=== PATIENT | female | born 1965 | race Caucasian/White ===

== ENCOUNTER 2018-06-06 01:40 | Emergency (ER) | payer OTHER ==
[2018-06-06 01:56] VITALS: BP 142/84; PULSE 75; TEMP 97.6; BMI 39.1
--- NOTE | 2018-06-06 02:10 | PDOC ---
History of Present Illness - General Chief Complaint: Pain, Acute Stated Complaint: ABD PAIN Time Seen by Provider: 06/06/18 02:10 - History of Present Illness Initial Comments: 06/06/18 02:11 52 year old woman with a history of chronic back pain w/ L4, L5 disc bulging, bipolar, RA not currently on meds, hypercholesterolemia, presents with 2 days of gradual lower back paraspinal pain that is worse with twisting or movement after spending the day cleaning her house yesterday. She notes that her back pain is not similar to her previous sciatic pain and does not travel into her legs. She denies dysuria, hematuria, urinary retention or incontinence. She takes Robaxin and Neurontin for her back pain and she is managed by pain management. She denies chest pain, shortness of breath, abdominal pain, diarrhea , nausea or vomiting but admits to chronic constipation. Past History - Past Medical History Allergies/Adverse Reactions: Allergies Allergy/AdvReac Type Severity Reaction Status Date / Time Fish Containing Products Allergy Verified 06/06/18 01:45 SEAFOD Allergy Unknown Swelling Uncoded 06/06/18 01:45 Home Medications: Ambulatory Orders Mirtazapine [Remeron -] 45 mg PO DAILY 08/17/13 Simvastatin [Zocor -] 20 mg PO HS 08/17/13 Alprazolam 2 mg PO TID 02/10/18 Quetiapine Fumarate [Seroquel -] 300 mg PO HS 02/10/18 Diclofenac Sodium [Voltaren] 2 gm TP TID PRN #3 tube 02/17/18 Ergocalciferol [Vitamin D2] 50,000 unit PO Q7D #4 capsule 02/17/18 Gabapentin 300 mg PO BID #60 capsule 05/18/18 Gabapentin 300 mg PO HS #30 capsule 05/18/18 Methocarbamol [Robaxin -] 750 mg PO BID PRN #60 tablet 05/18/18 Asthma: Yes Cancer: No Cardiac Disorders: No CVA: No Diabetes: No Disorders: No HTN: No Hypercholesterolemia: Yes (on meds) Liver Disease: No Psychiatric Problems: Yes (BIPOLAR) Seizures: No Thyroid Disease: No - Surgical History Abdominal Surgery: Yes (HERNIA REPAIR) - Suicide/Smoking/Psychosocial Hx Smoking History: Never smoked Have you smoked in the past 12 months: No Number of Cigarettes Smoked Daily: 6 If you are a former smoker, when did you quit?: 05/2013 Information on smoking cessation initiated: No 'Breaking Loose' booklet given: 05/21/14 Hx Alcohol Use: No Drug/Substance Use Hx: No Substance Use Type: None Hx Substance Use Treatment: No *Physical Exam - Vital Signs Last Vital Signs Temp Pulse Resp BP Pulse Ox 97.6 F 75 18 142/84 98 06/06/18 01:45 06/06/18 01:45 06/06/18 01:45 06/06/18 01:45 06/06/18 01:45 - Physical Exam Comments: 06/06/18 02:52 mild lumber paraspinal tenderness to palpation no spinal tenderness to palpation, no step offs CTAB, RRR Moderate Sedation - Procedure Monitoring Vital Signs: Procedure Monitoring Vital Signs Temperature 97.6 F 06/06/18 01:45 Pulse Rate 75 06/06/18 01:45 Respiratory Rate 18 06/06/18 01:45 Blood Pressure 142/84 06/06/18 01:45 O2 Sat by Pulse Oximetry (%) 98 06/06/18 01:45 Medical Decision Making - Medical Decision Making 06/06/18 02:49 52 year old woman with a history of chronic back pain w/ L4, L5 disc bulging, bipolar, RA not currently on meds, hypercholesterolemia, presents with 2 days of gradual lower back paraspinal pain that is worse with twisting or movement after spending the day cleaning her house yesterday. She notes that her back pain is not similar to her previous sciatic pain and does not travel into her legs. She denies dysuria, hematuria, urinary retention or incontinence. She takes Robaxin and Neurontin for her back pain and she is managed by pain management. ED Course: consider musculoskeletal pain vs sciatica r/o uti vs pyelo will dose pain medications and order ua reassess for clinical improvement 06/06/18 04:18 ua without uti 06/06/18 04:49 Patient reassessed, shows improvement of symptoms 06/06/18 04:51 *DC/Admit/Observation/Transfer Diagnosis at time of Disposition: Back pain, Musculoskeletal pain - Discharge Dispostion Disposition: HOME Condition at time of disposition: Stable Decision to Admit order: No - Referrals Referrals: Mitra Moura MD [Primary Care Provider] - - Patient Instructions Printed Discharge Instructions: DI for Low Back Pain Additional Instructions: You were seen in the ED for complaints of low back pain. In the ED you were evaluated with urine lab test and physical exam. Your results were unremarkable. There does not appear to be an acute need for immediate hospitalization. You are advised to follow up with your Primary Care Physician within 1 week. You were given a prescription for pain medications, please take as directed. Return to the ED immediately if you experience worsening lower back pain, numbness in the groin, urine incontinence, urine retention, blood in the urine or stool or fever. - Post Discharge Activity
--- NOTE | 2018-06-06 02:20 | PDOC ---
Attending Attestation - Resident Resident Name: Caroline Taylor - ED Attending Attestation I have performed the following: I have examined & evaluated the patient, The case was reviewed & discussed with the resident, I agree w/resident's findings & plan - HPI HPI: 06/06/18 04:52 Pt was cleaning her home and strained her back. States her robaxin didn;t help - Physicial Exam PE: 06/06/18 04:53 Agree with resident exam - Medical Decision Making 06/06/18 04:53 Home with flexeril
[2018-06-06 03:53] LABS: URINE APPEARANCE CLEAR; URINE BILIRUBIN NEGATIVE (<2.0 mg/dL); URINE COLOR LTYELLOW; URINE GLUCOSE (UA) NEGATIVE (NEGATIVE); URINE KETONE NEGATIVE (NEGATIVE); URINE LEUK ESTERASE TRACE (NEGATIVE); URINE NITRITE NEGATIVE (NEGATIVE); URINE PROTEIN NEGATIVE (NEGATIVE)
[2018-06-06 04:02] LABS: EPI CELLS RARE /HPF (FEW); URINE BACTERIA RARE /hpf (NONE SEEN)
== END 2018-06-06 04:55 | disposition home or self-care (01) ==
LOC: JER 01:40
DX: M54.5 Low back pain (principal); G89.29 Other chronic pain; F31.9 Bipolar disorder, unspecified; M06.9 Rheumatoid arthritis, unspecified; Z87.891 Personal history of nicotine dependence
CPT/HCPCS: 81003; 81015; 87086; 99281-25

== ENCOUNTER 2018-06-08 22:30 | Emergency (ER) | payer OTHER ==
[2018-06-08 22:41] VITALS: BP 102/54; PULSE 72; TEMP 98.1; BMI 27.9
--- NOTE | 2018-06-09 00:39 | PDOC ---
History of Present Illness - General Chief Complaint: Chest Pain Stated Complaint: CHEST PAIN Time Seen by Provider: 06/09/18 00:08 History Source: Patient Exam Limitations: No Limitations - History of Present Illness Presenting Symptoms: Other (palpitations) Timing/Duration: reports: resolved prior to arrival Severity/Quality: reports: mild (left arm has transient numbness) Prior Chest Pain/Cardiac Workup: reports: Echocardiography (pt had a stress test and ECHO done by Dr Dumont this year), Stress Test Nitro Today/Relief: Yes: no nitro taken today Aspirin Received prior to arrival (Core Measure): Yes: 81 mg x 2, provided by ED Past History - Past Medical History Allergies/Adverse Reactions: Allergies Allergy/AdvReac Type Severity Reaction Status Date / Time Fish Containing Products Allergy Verified 06/08/18 22:41 SEAFOD Allergy Unknown Swelling Uncoded 06/08/18 22:41 Home Medications: Ambulatory Orders Mirtazapine [Remeron -] 45 mg PO DAILY 08/17/13 Simvastatin [Zocor -] 20 mg PO HS 08/17/13 Alprazolam 2 mg PO TID 02/10/18 Quetiapine Fumarate [Seroquel -] 300 mg PO HS 02/10/18 Diclofenac Sodium [Voltaren] 2 gm TP TID PRN #3 tube 02/17/18 Ergocalciferol [Vitamin D2] 50,000 unit PO Q7D #4 capsule 02/17/18 Gabapentin 300 mg PO BID #60 capsule 05/18/18 Gabapentin 300 mg PO HS #30 capsule 05/18/18 Methocarbamol [Robaxin -] 750 mg PO BID PRN #60 tablet 05/18/18 Nitrofurantoin Monohyd/M-Cryst [Macrobid -] 100 mg PO BID #10 capsule 06/06/18 Oxycodone HCl/Acetaminophen [Percocet 5-325 mg Tablet] 1 tab PO Q6H #16 tablet MDD 4 06/06/18 Oxycodone HCl/Acetaminophen [Percocet 5/325 -] 1 tab PO Q6H #14 tablet MDD 4 07/20 Asthma: Yes Cancer: No Cardiac Disorders: No CVA: No COPD: No Diabetes: No Disorders: No HTN: No Hypercholesterolemia: Yes (on meds) Liver Disease: No Psychiatric Problems: Yes (BIPOLAR) Seizures: No Thyroid Disease: No - Surgical History Abdominal Surgery: Yes (HERNIA REPAIR) - Immunization History Td Vaccination: Yes TDAP Vaccination: Yes Immunization Up to Date: Yes - Suicide/Smoking/Psychosocial Hx Smoking History: Never smoked Have you smoked in the past 12 months: No Number of Cigarettes Smoked Daily: 6 If you are a former smoker, when did you quit?: 05/2013 Information on smoking cessation initiated: No 'Breaking Loose' booklet given: 05/21/14 Hx Alcohol Use: No Drug/Substance Use Hx: No Substance Use Type: None Hx Substance Use Treatment: No Cardiac Specific PMH - Complaint Specific PMHX Pacemaker: No Review of Systems - Review of Systems Able to Perform ROS?: Yes Is the patient limited Kyrgyz proficient: No Constitutional: No: Symptoms Reported, See HPI, Chills, Diaphoresis, Fever, Loss of Appetite, Malaise, Night Sweats, Weakness, Weight Stable, Unintentional Wgt. Loss, Unexplained wgt Loss, Other HEENTM: No: Symptoms Reported, See HPI, Eye Pain, Blurred Vision, Tearing, Recent change in vision, Double Vision, Cataracts, Ear Pain, Ocular Prothesis, Ear Discharge, Nose Pain, Nose Congestion, Tinnitus, Nose Bleeding, Hearing Loss , Throat Pain, Throat Swelling, Mouth Pain, Dental Problems, Difficulty Swallowing, Mouth Swelling, Other Respiratory: No: Symptoms reported, See HPI, Cough, Orthopnea, Shortness of Breath, SOB with Exertion, SOB at Rest, Stridor, Wheezing, Productive cough, Hemoptysis, Other Cardiac (ROS): Yes: Palpitations ABD/GI: No: Symptoms Reported, See HPI, Abdominal Distended, Abd. Pain w/ defecation, Blood Streaked Bowels, Constipated, Diarrhea, Difficulty Swallowing , Nausea, Poor Appetite, Poor Fluid Intake, Rectal Bleeding, Vomiting, Indigestion, Abdominal cramping, Tarry Stools, Other : No: Symptoms Reported, See HPI, Burning, Dysuria, Discharge, Frequency, Flank Pain, Hematuria, Incontinence, Pain, Urgency, Testicular Mass, Testicular Swelling, Lesions, Testicular Pain, Other Musculoskeletal: No: Symptoms Reported, See HPI, Back Pain, Gout, Joint Pain, Joint Swelling, Muscle Pain, Muscle Weakness, Neck Pain, Joint Stiffness, Other Integumentary: No: Symptoms Reported, See HPI, Bruising, Change in Color, Change in Hair/Nails, Dryness, Erythema, Flushing, Lesions, Lumps, Pallor, Pruritus, Rash, Sweating, Other Neurological: No: Symptoms reported, See HPI, Headache, Numbness, Paresthesia, Pre-Existing Deficit, Seizure, Tingling, Tremors, Weakness, Unsteady Gait, Ataxia, Dizziness, Other Hematologic/Lymphatic: No: Symptoms Reported, See HPI, Anemia, Blood Clots, Easy Bleeding, Easy Bruising, Bleeding Diathesis, Lymph Node Abnormalities, Swollen Glands, Other *Physical Exam - Vital Signs Last Vital Signs Temp Pulse Resp BP Pulse Ox 98.1 F 72 16 102/54 L 98 06/08/18 22:30 06/08/18 22:30 06/08/18 22:30 06/08/18 22:30 06/08/18 22:30 - Physical Exam General Appearance: Yes: Nourished HEENT: positive: Normal Voice Neck: positive: Supple Respiratory/Chest: positive: Lungs Clear Cardiovascular: positive: Regular Rhythm, Regular Rate Gastrointestinal/Abdominal: positive: Soft Musculoskeletal: positive: Normal Inspection Extremity: positive: Normal Inspection, Normal Range of Motion Integumentary: positive: Normal Color, Warm Neurologic: positive: Fully Oriented, Alert, Motor Strength 5/5 Moderate Sedation - Procedure Monitoring Vital Signs: Procedure Monitoring Vital Signs Temperature 98.1 F 06/08/18 22:30 Pulse Rate 72 06/08/18 22:30 Respiratory Rate 16 06/08/18 22:30 Blood Pressure 102/54 L 06/08/18 22:30 O2 Sat by Pulse Oximetry (%) 98 06/08/18 22:30 ED Treatment Course - LABORATORY CBC & Chemistry Diagram: 06/09/18 01:00 06/09/18 01:00 - ADDITIONAL ORDERS Additional order review: Laboratory Results 06/09/18 01:00 Sodium 142 Potassium 4.0 Chloride 108 H Carbon Dioxide 22 Anion Gap 11 BUN 21 H Creatinine 1.1 Creat Clearance w eGFR 51.96 Random Glucose 212 H Calcium 8.4 L Total Bilirubin 0.2 AST 23 ALT 39 Alkaline Phosphatase 89 Creatine Kinase 151 Troponin I < 0.02 Total Protein 7.0 Albumin 3.6 06/09/18 01:00 RBC 4.28 MCV 90.5 MCHC 34.7 RDW 14.1 MPV 8.1 D Neutrophils % 75.9 Lymphocytes % 19.1 Monocytes % 3.1 L Eosinophils % 0.9 D Basophils % 1.0 - Medications Given in the ED: ED Medications Discontinued Medications Generic Name Dose Route Start Last Admin Trade Name Alonzo PRN Reason Stop Dose Admin Aspirin 162 mg 06/09/18 00:41 06/09/18 01:05 Asa - PO 06/09/18 00:42 162 mg ONCE ONE Administration *DC/Admit/Observation/Transfer Diagnosis at time of Disposition: Palpitations - Discharge Dispostion Disposition: HOME Condition at time of disposition: Stable - Referrals Referrals: Mitra Moura MD [Primary Care Provider] - - Patient Instructions Printed Discharge Instructions: DI for Palpitations Additional Instructions: please follow up with your heart doctor return for any worsening symptoms - Post Discharge Activity
[2018-06-09] MEDS ORDERED: ASPIRIN 81 MG CHEWABLE TABLETS PO ONE (00:41)
[2018-06-09] MEDS ORDERED: ASPIRIN 81 MG CHEWABLE TABLETS ONE (01:00)
[2018-06-09 01:14] LABS: EOS % 0.9 % (0-4.5); HEMATOCRIT 38.8 % (32.4-45.2); HEMOGLOBIN 13.4 GM/dL (10.7-15.3); LYMPH % 19.1 % (8-40); MCH 31.4 pg (25.7-33.7); MCHC 34.7 g/dl (32.0-36.0); MEAN CELL VOLUME 90.5 fl (80-96); MEAN PLT VOLUME 8.1 fl (7.5-11.1); MONO % 3.1 % (3.8-10.2); NEUT % 75.9 % (42.8-82.8); PLATELET COUNT 244 K/MM3 (134-434); RBC 4.28 M/mm3 (3.60-5.2); RDW 14.1 % (11.6-15.6); WHITE BLOOD COUNT 9.4 K/mm3 (4.0-10.0)
[2018-06-09 01:40] LABS: ALBUMIN 3.6 g/dl (3.4-5.0); ALK PHOS 89 U/L (45-117); ANION GAP 11 MMOL/L (8-16); BILIRUBIN,TOTAL 0.2 mg/dL (0.2-1); BLOOD UREA NITROGEN 21 mg/dL (7-18); CALCIUM 8.4 mg/dL (8.5-10.1); CHLORIDE 108 mmol/L (98-107); CO2 22 mmol/L (21-32); CREATININE 1.1 mg/dL (0.55-1.3); GLUCOSE,RANDOM 212 mg/dL (74-106); SGOT/AST 23 U/L (15-37); SGPT/ALT 39 U/L (13-61); SODIUM 142 mmol/L (136-145)
--- NOTE | 2018-06-10 16:44 | EKG ---
Test Reason : Blood Pressure : / mmHG Vent. Rate : 069 BPM Atrial Rate : 069 BPM P-R Int : 172 ms QRS Dur : 100 ms QT Int : 410 ms P-R-T Axes : 069 044 034 degrees QTc Int : 439 ms NORMAL SINUS RHYTHM POSSIBLE LEFT ATRIAL ENLARGEMENT BORDERLINE ECG NO PREVIOUS ECGS AVAILABLE Confirmed by MARIALUISA HIGUERA, JERRY ([id number]) on 06/10/2018 4:44:02 PM Referred By: Confirmed By:JERRY ELAM MD
== END 2018-06-09 02:16 | disposition home or self-care (01) ==
LOC: JER 22:30
DX: R00.2 Palpitations (principal)
CPT/HCPCS: 36415; 80053; 82550; 82553; 84484; 85025; 93005; 93010; 99282-25

== ENCOUNTER 2019-01-03 09:02 | Emergency (ER) | payer OTHER ==
[2019-01-03 09:10] VITALS: BP 110/70; PULSE 69; TEMP 97.7; BMI 27.6
[2019-01-03] MEDS ORDERED: METHOCARBAMOL 500 MG TABLET PO ONE (09:52)
[2019-01-03] MEDS ORDERED: KETOROLAC TROMETHAMINE 15 MG/ML VIAL IM ONE (09:52)
[2019-01-03] MEDS ORDERED: KETOROLAC TROMETHAMINE 15 MG/ML VIAL ONE (10:09)
[2019-01-03] MEDS ORDERED: METHOCARBAMOL 500 MG TABLET ONE (10:10)
--- NOTE | 2019-01-03 10:51 | PDOC ---
History of Present Illness - General Chief Complaint: Pain Stated Complaint: LT FOOT PAIN Time Seen by Provider: 01/03/19 09:32 History Source: Patient Exam Limitations: No Limitations - History of Present Illness Initial Comments: 01/03/19 10:46 53 yo F w/ a h/o bipolar disorder, asthma, high cholesterol comes in with daughter c/o 2 weeks of L foot pain. She was wearing heels 2 weeks ago, felt a snap/pop to her L foot and has been in pain since. Denies trauma/injury, was not wearing new shoes, although there was a strap pressing on the dorsum of her foot. NO other complaints today, no numbness.tingling, no weakness, no ankle pain, no knee pain, no fever/chills, no NVD. Pt took naprosyn which has not helped with her pain 01/03/19 10:47 01/03/19 10:53 Past History - Past Medical History Allergies/Adverse Reactions: Allergies Allergy/AdvReac Type Severity Reaction Status Date / Time Fish Containing Products Allergy Verified 01/03/19 09:06 SEAFOD Allergy Unknown Swelling Uncoded 01/03/19 09:06 Home Medications: Ambulatory Orders Mirtazapine [Remeron -] 45 mg PO DAILY 08/17/13 Simvastatin [Zocor -] 20 mg PO HS 08/17/13 Alprazolam 2 mg PO TID 02/10/18 Quetiapine Fumarate [Seroquel -] 300 mg PO BID 02/10/18 Methocarbamol [Robaxin -] 750 mg PO BID PRN #60 tablet 05/18/18 Nitrofurantoin Monohyd/M-Cryst [Macrobid -] 100 mg PO BID #10 capsule 06/06/18 Docusate Sodium [Colace] 100 mg PO DAILY 06/09/18 Sennosides [Senna] 8.6 mg PO DAILY 06/09/18 Diclofenac Sodium [Voltaren] 2 gm TP TID PRN #3 tube 08/09/18 Ergocalciferol [Vitamin D2] 50,000 unit PO Q7D #4 capsule 08/09/18 Gabapentin 300 mg PO BID PRN #60 capsule 08/09/18 Lidocaine [Ztlido] 1 each TP DAILY #30 adh..patch 08/09/18 Acetaminophen [Tylenol -] 1,000 mg PO Q8H 4 Days #20 tablet 01/03/19 Cephalexin [Keflex] 500 mg PO TID 30 Days #30 capsule 01/03/19 Methocarbamol [Robaxin-750] 750 mg PO TID 3 Days #15 tablet 01/03/19 Asthma: Yes Cancer: No Cardiac Disorders: No CVA: No COPD: No Diabetes: No Disorders: No HTN: No Hypercholesterolemia: Yes (on meds) Liver Disease: No Psychiatric Problems: Yes (BIPOLAR) Seizures: No Thyroid Disease: No - Surgical History Abdominal Surgery: Yes (HERNIA REPAIR) - Immunization History Td Vaccination: Yes TDAP Vaccination: Yes Immunization Up to Date: Yes - Suicide/Smoking/Psychosocial Hx Smoking History: Current every day smoker Have you smoked in the past 12 months: No Number of Cigarettes Smoked Daily: 10 If you are a former smoker, when did you quit?: 05/2013 Information on smoking cessation initiated: No 'Breaking Loose' booklet given: 05/21/14 Hx Alcohol Use: No Drug/Substance Use Hx: No Substance Use Type: None Hx Substance Use Treatment: No Review of Systems - Review of Systems Able to Perform ROS?: Yes Constitutional: No: Chills, Fever, Malaise, Night Sweats HEENTM: No: Eye Pain, Recent change in vision, Throat Pain Respiratory: No: Cough, Shortness of Breath Cardiac (ROS): No: Chest Pain, Palpitations, Chest Tightness ABD/GI: No: Diarrhea, Nausea, Vomiting, Abdominal cramping : No: Dysuria, Hematuria Musculoskeletal: No: Back Pain Integumentary: No: Rash Neurological: No: Headache, Numbness, Dizziness Psychiatric: No: Change in Appetite Endocrine: No: Unexplained Weight Loss *Physical Exam - Vital Signs Last Vital Signs Temp Pulse Resp BP Pulse Ox 97.7 F 69 18 110/70 100 01/03/19 09:06 01/03/19 09:06 01/03/19 09:06 01/03/19 09:06 01/03/19 09:06 - Physical Exam General Appearance: Yes: Nourished. No: Apparent Distress HEENT: positive: Normal Voice. negative: Pale Conjunctivae, Scleral Icterus (R) , Scleral Icterus (L) Neck: positive: Supple. negative: Decreased range of motion Respiratory/Chest: negative: Respiratory Distress, Accessory Muscle Use Cardiovascular: positive: Regular Rate Musculoskeletal: positive: Normal Inspection. negative: Decreased Range of Motion Extremity: positive: Normal Capillary Refill, Normal Range of Motion, Other (L foot with mild erythema overlying the dorsum aspect of the foot). negative: Tender, Pedal Edema Integumentary: positive: Normal Color, Dry. negative: Jaundice, Rash Neurologic: positive: Fully Oriented, Alert, Normal Mood/Affect ED Treatment Course - RADIOLOGY Radiology Studies Ordered: Category Date Time Status FOOT-LEFT [RAD] Stat Radiology 01/03/19 09:51 Completed - Medications Given in the ED: ED Medications Discontinued Medications Generic Name Dose Route Start Last Admin Trade Name Freq PRN Reason Stop Dose Admin Ketorolac Tromethamine 15 mg 01/03/19 09:52 01/03/19 10:23 Toradol Injection - IM 01/03/19 09:53 15 mg ONCE ONE Administration Methocarbamol 1,000 mg 01/03/19 09:52 01/03/19 10:23 Robaxin - PO 01/03/19 09:53 1,000 mg ONCE ONE Administration *DC/Admit/Observation/Transfer Diagnosis at time of Disposition: Foot pain, left, Tendonitis of ankle or foot, Cellulitis of foot, left Osteoarthritis Qualifiers: Osteoarthritis location: foot Osteoarthritis type: unspecified Laterality: left Qualified Code(s): M19.072 - Primary osteoarthritis, left ankle and foot - Discharge Dispostion Disposition: HOME Condition at time of disposition: Stable - Prescriptions Prescriptions: Acetaminophen [Tylenol -] 1,000 mg PO Q8H 4 Days #20 tablet Methocarbamol [Robaxin-750] 750 mg PO TID 3 Days #15 tablet - Referrals Referrals: Danielle Gu DO [Primary Care Provider] - Arya Campos DO [Staff Physician] - - Patient Instructions Additional Instructions: Please make an appointment with the orthopedist and with your PCP for this week. Return for worsening/concerning symptoms. - Post Discharge Activity
[2019-01-03] MEDS ORDERED: ACETAMINOPHEN 325 MG TABLET (FP) PO ONE (10:59)
[2019-01-03] MEDS ORDERED: CEPHALEXIN MONOHYDRATE 500 MG CAPSULE (UD) PO ONE (10:59)
[2019-01-03] MEDS ORDERED: ACETAMINOPHEN 325 MG TABLET (FP) ONE (11:00)
[2019-01-03] MEDS ORDERED: CEPHALEXIN MONOHYDRATE 500 MG CAPSULE (UD) ONE (11:00)
== END 2019-01-03 12:26 | disposition home or self-care (01) ==
LOC: JERFT 09:02
PROC: 3E0233Z Introduction of Anti-inflammatory into Muscle, Percutaneous Approach (ICD-10-PCS; principal; 2019-01-03)
DX: L03.116 Cellulitis of left lower limb (principal); M19.072 Primary osteoarthritis, left ankle and foot; M77.52 Other enthesopathy of left foot and ankle
CPT/HCPCS: 73630-TC-LT; 96372; 99281-25

== ENCOUNTER 2021-04-16 11:56 | Emergency (ER) | payer OTHER ==
[2021-04-16 12:59] VITALS: BP 138/85; PULSE 79; TEMP 97.2; BMI 29.7
[2021-04-16] MEDS ORDERED: METHOCARBAMOL 500 MG TABLET PO ONE (14:46)
[2021-04-16] MEDS ORDERED: KETOROLAC TROMETHAMINE 30 MG/1 ML VIAL IM ONE (14:46)
[2021-04-16] MEDS ORDERED: KETOROLAC TROMETHAMINE 30 MG/1 ML VIAL ONE (14:49)
[2021-04-16] MEDS ORDERED: METHOCARBAMOL 500 MG TABLET ONE (14:49)
== END 2021-04-16 14:55 | disposition home or self-care (01) ==
LOC: JERFT 11:56
PROC: 3E023GC Introduction of Other Therapeutic Substance into Muscle, Percutaneous Approach (ICD-10-PCS; principal; 2021-04-16)
DX: S76.211A Strain of adductor muscle, fascia and tendon of right thigh, initial encounter (principal); X50.0XXA Overexertion from strenuous movement or load, initial encounter
CPT/HCPCS: 76856-TC; 93971-TC; 99284-25

== ENCOUNTER 2021-07-05 04:18 | Day surgery (SDC) | payer OTHER ==
[2021-07-04 10:56] VITALS: BMI 29.7
[2021-07-05] MEDS ORDERED: LIDOCAINE HCL/PF 1% SDV 5ML VIAL ONE (07:24)
[2021-07-05] MEDS ORDERED: TRIAMCINOLONE ACET 40MG/1ML VIAL ONE (07:24)
[2021-07-05] MEDS ORDERED: LIDOCAINE HCL 1% PRESERVATIVE FREE - 30ML VIAL IJ ONE (12:58)
[2021-07-05] MEDS ORDERED: TRIAMCINOLONE ACET 40MG/1ML VIAL IJ ONE (12:59)
[2021-07-05] MEDS ORDERED: BUPIVACAINE HCL/PF 0.25% (2.5MG/ML) 10 ML VIAL IJ ONE (13:00)
[2021-07-05 15:02] VITALS: BP 120/70; PULSE 70; TEMP 98
== END 2021-07-05 13:30 | disposition home or self-care (01) ==
LOC: JASU-SURG 04:18
PROVIDERS: ATTEND Pain Medicine Pain Medicine
PROC: 3E0U3BZ Introduction of Anesthetic Agent into Joints, Percutaneous Approach (ICD-10-PCS; 2021-07-05)
PROC: BQ40ZZZ Ultrasonography of Right Hip (ICD-10-PCS; 2021-07-05)
PROC: 3E0U3NZ Introduction of Analgesics, Hypnotics, Sedatives into Joints, Percutaneous Approach (ICD-10-PCS; principal; 2021-07-05 13:30)
DX: M25.551 Pain in right hip (principal)
CPT/HCPCS: 76000-TC-FY; J1100

== ENCOUNTER 2021-07-30 04:32 | Day surgery (SDC) | payer OTHER ==
[2021-07-26 16:45] VITALS: BMI 29.8
[2021-07-30] MEDS ORDERED: BUPIVACAINE HCL/PF 0.75% 10 ML VIAL ONE (11:25)
[2021-07-30] MEDS ORDERED: BUPIVACAINE HCL/PF 0.5% (5MG/ML) 10 ML VIAL ONE (11:25)
[2021-07-30] MEDS ORDERED: DEXAMETHASONE SOD PHOSPHATE 10 MG/1 ML VIAL ONE (11:26)
[2021-07-30] MEDS ORDERED: LIDOCAINE HCL/PF 1% SDV 5ML VIAL ONE (11:26)
[2021-07-30] MEDS ORDERED: LIDOCAINE HCL 1% PRESERVATIVE FREE - 30ML VIAL IJ ONE ×2 (11:49→11:50)
[2021-07-30] MEDS ORDERED: DEXAMETHASONE SOD PHOSPHATE 10 MG/1 ML VIAL IVPUSH ONE ×2 (11:51→12:11)
[2021-07-30] MEDS ORDERED: ACETAMINOPHEN 650 MG/20.3 ML ORAL SOLUTION (CUPS) ONE (12:33)
[2021-07-30] MEDS ORDERED: ACETAMINOPHEN 325 MG TABLET (FP) PO ONE (13:30)
[2021-07-30 13:47] VITALS: TEMP 98
[2021-07-30 13:51] VITALS: BP 126/88; PULSE 69
== END 2021-07-30 12:50 | disposition home or self-care (01) ==
LOC: JASU-SURG 04:32
PROVIDERS: ATTEND Pain Medicine Pain Medicine
PROC: 3E0R33Z Introduction of Anti-inflammatory into Spinal Canal, Percutaneous Approach (ICD-10-PCS; 2021-07-30)
PROC: 3E0R3BZ Introduction of Anesthetic Agent into Spinal Canal, Percutaneous Approach (ICD-10-PCS; principal; 2021-07-30 11:00)
DX: M54.16 Radiculopathy, lumbar region (principal)
CPT/HCPCS: 76000-TC-FY; J1100

== ENCOUNTER 2021-08-17 11:09 | Emergency (ER) | payer OTHER ==
[2021-08-17 11:19] VITALS: BP 111/65; PULSE 79; TEMP 97.9; BMI 29.0
== END 2021-08-17 12:28 | disposition home or self-care (01) ==
LOC: JER 11:09
DX: R10.2 Pelvic and perineal pain (principal)
CPT/HCPCS: 99283-25

== ENCOUNTER 2022-05-18 22:17 | Inpatient (IN) | payer OTHER ==
[2022-05-18 22:28] VITALS: BMI 28.3
[2022-05-18] MEDS ORDERED: morphine SULFATE 4 MG/ML VIAL IVPUSH ONE (23:41)
[2022-05-18] MEDS ORDERED: ONDANSETRON 4 MG/2 ML VIAL IVPUSH ONE (23:41)
[2022-05-19] MEDS ORDERED: ONDANSETRON 4 MG/2 ML VIAL ONE (00:29)
[2022-05-19] MEDS ORDERED: morphine SULFATE 4 MG/ML VIAL ONE ×2 (00:30→09:41)
[2022-05-19 01:10] LABS: BASO % 0.8 % (0-2.0); EOS % 1.4 % (0-4.5); HEMATOCRIT 44.9 % (32.4-45.2); LYMPH % 16.6 % (8-40); MCH 29.8 pg (25.7-33.7); MCHC 33.4 g/dl (32.0-36.0); MEAN CELL VOLUME 89.3 fl (80-96); MEAN PLT VOLUME 8.4 fl (7.5-11.1); MONO % 8.6 % (3.8-10.2); NEUT % 72.6 % (42.8-82.8); PH,URINE 6.5 (5.0-8.0); PLATELET COUNT 332 10^3/uL (134-434); RBC 5.03 M/mm3 (3.60-5.2); RDW 14.2 % (11.6-15.6); URINE APPEARANCE CLEAR; URINE BILIRUBIN NEGATIVE (NEGATIVE); URINE COLOR YELLOW; URINE GLUCOSE (UA) NEGATIVE (NEGATIVE); URINE KETONE NEGATIVE (NEGATIVE); URINE LEUK ESTERASE NEGATIVE (NEGATIVE); URINE NITRITE NEGATIVE (NEGATIVE); URINE PROTEIN NEGATIVE (NEGATIVE); URINE UROBILINOGEN 0.2 mg/dL (0.2-1.0); WHITE BLOOD COUNT 18.4 K/mm3 (4.0-10.0)
[2022-05-19 01:19] LABS: INR 0.97 (0.83-1.09); PROTHROMBIN TIME (PATIENT) 11.1 SEC (9.7-13.0)
[2022-05-19 01:22] LABS: ACTIVATED PTT 36.7 SECONDS (25.2-36.5)
[2022-05-19] MEDS ORDERED: PIPERACILLIN/TAZOB 3.375 GM 3.375 GM in DEXTROSE 5%-WATER - 50 ML IVPB ONE (01:40)
[2022-05-19 01:46] LABS: CALCIUM 9.6 mg/dL (8.5-10.1)
[2022-05-19 01:47] LABS: BLOOD UREA NITROGEN 19.7 mg/dL (7-18)
[2022-05-19 01:50] LABS: CREATININE 0.9 mg/dL (0.55-1.3)
[2022-05-19 01:51] LABS: BILIRUBIN,TOTAL 0.7 mg/dL (0.2-1); TOT PROT 7.8 g/dl (6.4-8.2)
[2022-05-19] MEDS ORDERED: PIPERACILLIN/TAZOB 3.375 GM 3.375 GM/50 ML BAG IVPB ONE ×2 (02:03→11:06)
[2022-05-19 03:54] LABS: CALCIUM 8.8 mg/dL (8.5-10.1)
[2022-05-19 03:55] LABS: BLOOD UREA NITROGEN 18.8 mg/dL (7-18)
[2022-05-19 03:58] LABS: CREATININE 0.8 mg/dL (0.55-1.3)
[2022-05-19] MEDS ORDERED: ACETAMINOPHEN 1000 MG/100 ML BAG IVPB ONE (04:00)
[2022-05-19] MEDS ORDERED: ACETAMINOPHEN INJECTION 100 ML IVPB ONE (04:26)
[2022-05-19] MEDS ORDERED: morphine CARPU-JECT 4 MG/1 ML DISP.SYRIN IVPUSH ONE (09:40)
[2022-05-19] MEDS ORDERED: ACETAMINOPHEN 1000 MG/100 ML BAG IVPB PRN (10:52)
[2022-05-19] MEDS ORDERED: ONDANSETRON 4 MG/2 ML VIAL IVPUSH PRN (10:53)
[2022-05-19] MEDS: DEXTROSE 5%-0.45% SALINE 1,000 ML IV SCH (11:00)
[2022-05-19] MEDS ORDERED: PIPERACILLIN/TAZOB 3.375 GM 3.375 GM in DEXTROSE 5%-WATER - 50 ML IVPB SCH (11:00)
[2022-05-19] MEDS: PIPERACILLIN/TAZOB 3.375 GM 3.375 GM in DEXTROSE 5%-WATER - 50 ML IVPB SCH ×2 (11:27→17:56)
[2022-05-19 12:20] LABS: BASO % 0.5 % (0-2.0); EOS % 2.3 % (0-4.5); HEMATOCRIT 39.1 % (32.4-45.2); HEMOGLOBIN 12.9 GM/dL (10.7-15.3); LYMPH % 22.2 % (8-40); MCH 29.2 pg (25.7-33.7); MCHC 32.9 g/dl (32.0-36.0); MEAN CELL VOLUME 88.7 fl (80-96); MEAN PLT VOLUME 8.2 fl (7.5-11.1); MONO % 7.9 % (3.8-10.2); NEUT % 67.1 % (42.8-82.8); PLATELET COUNT 241 10^3/uL (134-434); RDW 14.2 % (11.6-15.6); WHITE BLOOD COUNT 12.5 K/mm3 (4.0-10.0)
[2022-05-19 12:41] LABS: ALBUMIN 3.5 g/dl (3.4-5.0); BLOOD UREA NITROGEN 19.8 mg/dL (7-18)
[2022-05-19 12:44] LABS: CREATININE 0.8 mg/dL (0.55-1.3)
[2022-05-19 12:46] LABS: BILIRUBIN,TOTAL 0.5 mg/dL (0.2-1); TOT PROT 6.7 g/dl (6.4-8.2)
[2022-05-19] MEDS ORDERED: KETOROLAC TROMETHAMINE 30 MG/1 ML VIAL ONE (13:16)
[2022-05-19] MEDS: KETOROLAC TROMETHAMINE 30 MG/1 ML VIAL IVPUSH PRN ×2 (13:21→21:34)
[2022-05-19] MEDS: PANTOPRAZOLE 40 MG TABLET PO SCH (14:30)
[2022-05-19] MEDS: POLYETHYLENE GLYCOL (HEALTHYLAX) 3350 17 GM PACKET PO SCH (21:33)
[2022-05-19] MEDS: MIRTAZAPINE 15 MG TABLET (FP) PO SCH (21:33)
[2022-05-19] MEDS: QUEtiapine FUMARATE 300 MG TABLET PO SCH (22:36)
[2022-05-20] MEDS: PIPERACILLIN/TAZOB 3.375 GM 3.375 GM in DEXTROSE 5%-WATER - 50 ML IVPB SCH ×3 (02:40→20:42)
[2022-05-20 08:28] LABS: HEMATOCRIT 37.3 % (32.4-45.2); HEMOGLOBIN 12.3 GM/dL (10.7-15.3); MCH 29.5 pg (25.7-33.7); MEAN CELL VOLUME 89.4 fl (80-96); MEAN PLT VOLUME 8.2 fl (7.5-11.1); PLATELET COUNT 234 10^3/uL (134-434); RBC 4.17 M/mm3 (3.60-5.2); RDW 14.2 % (11.6-15.6); WHITE BLOOD COUNT 8.2 K/mm3 (4.0-10.0)
[2022-05-20 08:46] LABS: CALCIUM 8.7 mg/dL (8.5-10.1)
[2022-05-20 08:47] LABS: ALBUMIN 3.1 g/dl (3.4-5.0); BLOOD UREA NITROGEN 16.2 mg/dL (7-18)
[2022-05-20 08:50] LABS: CREATININE 0.8 mg/dL (0.55-1.3)
[2022-05-20 08:51] LABS: BILIRUBIN,TOTAL 0.4 mg/dL (0.2-1)
[2022-05-20] MEDS: POLYETHYLENE GLYCOL (HEALTHYLAX) 3350 17 GM PACKET PO SCH ×3 (10:16→22:20)
[2022-05-20] MEDS: PANTOPRAZOLE 40 MG TABLET PO SCH (10:16)
[2022-05-20] MEDS: DEXTROSE 5%-0.45% SALINE 1,000 ML IV SCH (10:18)
[2022-05-20] MEDS: QUEtiapine FUMARATE 300 MG TABLET PO SCH ×3 (10:42→22:23)
[2022-05-20] MEDS: MIRTAZAPINE 15 MG TABLET (FP) PO SCH ×2 (22:21→22:24)
[2022-05-21] MEDS: KETOROLAC TROMETHAMINE 30 MG/1 ML VIAL IVPUSH PRN (01:17)
[2022-05-21] MEDS: PIPERACILLIN/TAZOB 3.375 GM 3.375 GM in DEXTROSE 5%-WATER - 50 ML IVPB SCH ×2 (02:40→09:42)
[2022-05-21 09:37] LABS: BASO % 0.3 % (0-2.0); EOS % 2.1 % (0-4.5); HEMATOCRIT 39.2 % (32.4-45.2); HEMOGLOBIN 12.8 GM/dL (10.7-15.3); LYMPH % 14.2 % (8-40); MCH 29.4 pg (25.7-33.7); MCHC 32.6 g/dl (32.0-36.0); MEAN CELL VOLUME 90.3 fl (80-96); MONO % 3.6 % (3.8-10.2); NEUT % 79.8 % (42.8-82.8); PLATELET COUNT 250 10^3/uL (134-434); RBC 4.34 M/mm3 (3.60-5.2); RDW 14.1 % (11.6-15.6); WHITE BLOOD COUNT 7.9 K/mm3 (4.0-10.0)
[2022-05-21 09:38] VITALS: TEMP 98.7
[2022-05-21] MEDS: PANTOPRAZOLE 40 MG TABLET PO SCH (09:43)
[2022-05-21] MEDS: QUEtiapine FUMARATE 300 MG TABLET PO SCH (09:43)
[2022-05-21] MEDS: POLYETHYLENE GLYCOL (HEALTHYLAX) 3350 17 GM PACKET PO SCH ×2 (09:43→14:18)
[2022-05-21 10:19] LABS: ALBUMIN 3.5 g/dl (3.4-5.0); BLOOD UREA NITROGEN 17.7 mg/dL (7-18)
[2022-05-21 10:22] LABS: CREATININE 0.9 mg/dL (0.55-1.3)
[2022-05-21 10:24] LABS: BILIRUBIN,TOTAL 0.6 mg/dL (0.2-1); TOT PROT 6.6 g/dl (6.4-8.2)
[2022-05-21] MEDS: DEXTROSE 5%-0.45% SALINE 1,000 ML IV SCH (14:20)
[2022-05-21 14:49] VITALS: BP 109/65; PULSE 70; RESP 18
== END 2022-05-21 15:54 | disposition home or self-care (01) | DRG 244 ==
LOC: JER 22:17 → JERBED 05-19 04:02 → J7W 05-19 14:59
PROVIDERS: ADMIT Internal Medicine; ATTEND Internal Medicine
DX: K57.92 Diverticulitis of intestine, part unspecified, without perforation or abscess without bleeding (principal); F31.9 Bipolar disorder, unspecified; F17.210 Nicotine dependence, cigarettes, uncomplicated
CPT/HCPCS: 0241U-QW; 36415; 74177-TC; 76830-TC; 80048; 80053; 81003; 83605; 85025; 85027; 85610; 85730; 86140; 86850; 86900; 86901; 87086; 93005; 93010; 99285-25; Q9967

== ENCOUNTER 2022-07-16 03:17 | Emergency (ER) | payer OTHER ==
[2022-07-16 03:27] VITALS: BMI 30.1
[2022-07-16] MEDS ORDERED: ONDANSETRON 4 MG/2 ML VIAL IVPB ONE (05:01)
[2022-07-16] MEDS ORDERED: morphine CARPU-JECT 2 MG/1 ML DISP.SYRIN IVPUSH ONE (05:01)
[2022-07-16] MEDS ORDERED: ONDANSETRON 4 MG/2 ML VIAL ONE (05:03)
[2022-07-16 05:43] LABS: BASO % 0.7 % (0-2.0); EOS % 1.7 % (0-4.5); HEMATOCRIT 43.9 % (32.4-45.2); HEMOGLOBIN 14.7 GM/dL (10.7-15.3); LYMPH % 30.4 % (8-40); MCHC 33.6 g/dl (32.0-36.0); MEAN CELL VOLUME 89.3 fl (80-96); MEAN PLT VOLUME 8.5 fl (7.5-11.1); MONO % 7.7 % (3.8-10.2); NEUT % 59.5 % (42.8-82.8); PLATELET COUNT 294 10^3/uL (134-434); RBC 4.91 M/mm3 (3.60-5.2); RDW 13.7 % (11.6-15.6); WHITE BLOOD COUNT 10.2 K/mm3 (4.0-10.0)
[2022-07-16 05:51] LABS: INR 0.97 (0.83-1.09); PROTHROMBIN TIME (PATIENT) 11.3 SEC (9.7-13.0)
[2022-07-16 05:54] LABS: ACTIVATED PTT 33.3 SECONDS (25.2-36.5)
[2022-07-16 06:12] LABS: CALCIUM 9.4 mg/dL (8.5-10.1)
[2022-07-16 06:13] LABS: ALBUMIN 3.8 g/dl (3.4-5.0); BLOOD UREA NITROGEN 17.7 mg/dL (7-18)
[2022-07-16 06:17] LABS: TOT PROT 7.4 g/dl (6.4-8.2)
[2022-07-16 06:18] LABS: BILIRUBIN,TOTAL 0.2 mg/dL (0.2-1)
[2022-07-16] MEDS ORDERED: KETOROLAC TROMETHAMINE 15 MG/ML VIAL IVPUSH ONE (06:24)
[2022-07-16] MEDS ORDERED: KETOROLAC TROMETHAMINE 15 MG/ML VIAL ONE (06:24)
[2022-07-16 06:25] VITALS: BP 108/74; PULSE 75; RESP 18; TEMP 98.4
== END 2022-07-16 06:37 | disposition home or self-care (01) ==
LOC: JER 03:17
PROC: 3E0333Z Introduction of Anti-inflammatory into Peripheral Vein, Percutaneous Approach (ICD-10-PCS; principal; 2022-07-16)
PROC: 3E033NZ Introduction of Analgesics, Hypnotics, Sedatives into Peripheral Vein, Percutaneous Approach (ICD-10-PCS; 2022-07-16)
PROC: 3E033GC Introduction of Other Therapeutic Substance into Peripheral Vein, Percutaneous Approach (ICD-10-PCS; 2022-07-16)
DX: R07.82 Intercostal pain (principal); K59.00 Constipation, unspecified
CPT/HCPCS: 36415; 71046-TC-FY; 71250-TC; 74176-TC; 80053; 84484; 85025; 85610; 85730; 93005; 93010; 99285-25